=== PATIENT | female | born 1960 | race Caucasian/White ===

== ENCOUNTER 2017-11-01 18:00 | Emergency (ER) | payer SELFPAY ==
[~2017-11-01] VITALS: Ht 165.1 cm; Wt 61.2 kg
[2017-11-01 19:15] VITALS: BP 120/73
[2017-11-01] MEDS ORDERED: KETOROLAC 60 MG/2 ML VIAL. IM ONE ×2 (19:45)
--- NOTE | 2017-11-01 20:07 | PHYS DOC ---
Past History Past Medical History: Asthma Past Surgical History: Hysterectomy, Other Alcohol Use: Occasionally Drug Use: Marijuana Adult General Chief Complaint Chief Complaint: KNEE INJURY HPI HPI Patient is a [age] year old [sex] who presents with [] Review of Systems Review of Systems Constitutional: Denies fever or chills [] Eyes: Denies change in visual acuity, redness, or eye pain [] HENT: Denies nasal congestion or sore throat [] Respiratory: Denies cough or shortness of breath [] Cardiovascular: No additional information not addressed in HPI [] GI: Denies abdominal pain, nausea, vomiting, bloody stools or diarrhea [] : Denies dysuria or hematuria [] Musculoskeletal: Denies back pain or joint pain [] Integument: Denies rash or skin lesions [] Neurologic: Denies headache, focal weakness or sensory changes [] Endocrine: Denies polyuria or polydipsia [] All other systems were reviewed and found to be within normal limits, except as documented in this note. Current Medications Current Medications Current Medications Medications (Trade) Dose Ordered Sig/Haydee Start Time Stop Time Status Last Admin Dose Admin Ketorolac Tromethamine (Toradol) 60 mg 1X ONCE 11/01/17 19:45 11/01/17 19:45 DC Allergies Allergies Allergies Coded Allergies Type Severity Reaction Last Updated Verified alprazolam Allergy Unknown 11/01/17 Yes Physical Exam Physical Exam Constitutional: Well developed, well nourished, no acute distress, non-toxic appearance. [] HENT: Normocephalic, atraumatic, bilateral external ears normal, oropharynx moist, no oral exudates, nose normal. [] Eyes: PERRLA, EOMI, conjunctiva normal, no discharge. [] Neck: Normal range of motion, no tenderness, supple, no stridor. [] Cardiovascular:Heart rate regular rhythm, no murmur [] Lungs & Thorax: Bilateral breath sounds clear to auscultation [] Abdomen: Bowel sounds normal, soft, no tenderness, no masses, no pulsatile masses. [] Skin: Warm, dry, no erythema, no rash. [] Back: No tenderness, no CVA tenderness. [] Extremities: No tenderness, no cyanosis, no clubbing, ROM intact, no edema. [] Neurologic: Alert and oriented X 3, normal motor function, normal sensory function, no focal deficits noted. [] Psychologic: Affect normal, judgement normal, mood normal. [] Current Patient Data Vital Signs Vital Signs Date Time Temp Pulse Resp B/P (MAP) Pulse Ox O2 Delivery O2 Flow Rate FiO2 11/01/17 18:19 98.5 71 22 98 Room Air EKG EKG [] Radiology/Procedures Radiology/Procedures [] Course & Med Decision Making Course & Med Decision Making Pertinent Labs and Imaging studies reviewed. (See chart for details) [] Dragon Disclaimer Dragon Disclaimer This electronic medical record was generated, in whole or in part, using a voice recognition dictation system. Departure Departure: Impression: Primary Impression: Right knee sprain Disposition: HOME, SELF-CARE Condition: IMPROVED Referrals: [facility] (PCP) Patient Instructions: Knee Sprain Additional Instructions: It appears that you have a mild sprain of your right knee. Wear knee immobilizer until follow-up with your doctor for reevaluation and referral to orthopedics as needed. Rest apply ice and elevate above your heart whenever possible. Take ibuprofen every 6 hours and Tylenol every 4 hours as needed. Use knee immobilizer with cane or crutches as needed to support herself as much as necessary for weightbearing as tolerated. Your doctor or your orthopedic doctor can refer you for further workup including an MRI of your knee if clinically indicated. VANESSA BLOOM MD November 01, 2017 20:07
--- NOTE | 2017-11-02 08:24 | RAD ---
Right knee 3 views. HISTORY: Knee injury pain and swelling 3 views were taken of the right knee. There is mild joint space narrowing in the medial joint compartment with spurring. There is mild spurring on the patella. There is a small joint effusion. There is no acute fracture. IMPRESSION: 1. Arthritis right knee. 2. Joint effusion. Electronically signed by: Eliazar Atkins MD (11/02/2017 8:21 AM) [facility]
== END 2017-11-01 20:12 | disposition home or self-care (01) ==
LOC: ER 18:00
DX: S83.91XA Sprain of unspecified site of right knee, initial encounter (principal); J45.909 Unspecified asthma, uncomplicated; F12.10 Cannabis abuse, uncomplicated; Z88.8 Allergy status to other drugs, medicaments and biological substances; X58.XXXA Exposure to other specified factors, initial encounter; Y93.89 Activity, other specified; Y99.8 Other external cause status; Y92.89 Other specified places as the place of occurrence of the external cause
CPT/HCPCS: 29505; 73562; 96372; 99284; J1885